=== PATIENT | female | born 1960 | race Caucasian/White ===

== ENCOUNTER → 2018-04-21 13:29 | Outpatient (CLI) | payer OTHER, SELFPAY ==
--- NOTE | 2018-04-21 | FLU_PTH ---
PATIENT: HOLA KATZ LOC: U#:[id number] AGE/SX: 64/F ROOM: RE04/21/[address]: Dr. Alex Burkett MD : 1960 BED: DIS: SPEC #: [id number] RECD: 04/21/18 15:09 STATUS: KOJO SERGIO #: [id number] ALBERTA: 04/21/18 00:[address]: Alex Burkett DEPT: CYTOLOGY RECD BY: Daryl Burk ENTERED: 04/21/18 15:10 SP TYPE: Fluid OTHR DR: Dr. Dwayne Quiñones MD Tissues: Thyroid gland, NOS Procedures: Special Stain Group II Surgery Specimen Level IV Cytospin Fluid HEADER OPERATION: FNA of right thyroid PRE-OP DIAGNOSIS: Right thyroid nodule TISSUE SUBMITTED: Right thyroid nodule DIAGNOSIS CYTOLOGY Fine needle aspiration, right thyroid nodule (smears): Atypical follicular cells suspicious for papillary carcinoma. See comment. AM:marianna 04/25/18 COMMENT The specimen is evaluated at the time of FNA by Dr. Puckett. Immediate Evaluation: Pass #1 - Blood, rare benign follicular cells. Pass #2 - Atypical follicular cells noted. Pass #3 - Atypical follicular cells noted. The cell block contains rare watery colloid. Clinical correlation is necessary. Case has been reviewed in consultation with Dr. Perales who concurs with the above diagnosis. IDC:CE CYTOLOGY STUDY Slides are reviewed. CYTOLOGY GROSS Pass #1 - Received is 0.1 ml of red-ovalle material labeled with the patient's name, and designated right thyroid. Four imprints and two paps are made from the submitted fluid and the rest is added to CytoLyt for cell block preparation. Submitted for cytology study. Pass #2 - Received is 0.1 ml of red-ovalle material labeled with the patient's name, and designated right thyroid. Two imprints and one pap are made from the submitted fluid and the rest is added to CytoLyt for cell block preparation. Submitted for cytology study. Pass #3 - Received is 0.1 ml of red-ovalle material labeled with the patient's name, and designated right thyroid. Three imprints and three paps are made from the submitted fluid and the rest is added to CytoLyt for cell block preparation. Submitted for cytology study. / AM:marianna 04/21/18 TC:? CPT: 17691, 89248 x2, 90367
--- NOTE | 2018-04-21 13:54 | US_ITS ---
PROCEDURE: ULTRASOUND GUIDED RIGHT THYROID FNA/BIOPSY. DATE: April 21, 2018. INDICATION: Female, 58 years old. Right thyroid nodule. PHYSICIAN: Edvin Hairston M.D. MEDICATIONS: 2% lidocaine administered subcutaneously for local anesthesia. ACCESS SITE: Right - anterior approach. NEEDLE: 25-gauge FNA needle. SPECIMEN: Multiple FNA specimen collected and given to pathology. EBL: None. COMPLICATIONS: None immediate. PROCEDURE: The risks, benefits, and alternatives to the procedure were explained to the patient. The specific risk of hemorrhage requiring further treatment or intervention was detailed and accepted. Written informed consent was obtained. The patient was brought into the ultrasound room and placed in the supine position on the stretcher. An appropriate entry site was identified. The overlying skin was prepped and draped in the usual sterile fashion. 2% lidocaine was administered subcutaneously for local anesthesia. Under ultrasound guidance, a 25-gauge FNA needle was advanced into the lesion. Aspiration was performed and the needle was withdrawn. A total of 3 passes were performed with specimen collected and given to the pathologist who was present during the procedure. Hemostasis was achieved with manual compression. Repeat ultrasound images of the biopsy area was performed which demonstrated no gross bleeding or hematoma. An antibiotic ointment dressing was placed and the patient was given an icepack. The patient tolerated the procedure well without immediate complications. The patient was discharged in stable condition. US/FNA 1st Biopsy w/ US IMPRESSION: Successful ultrasound-guided 3 thyroid nodule FNA/biopsy, as described above. Electronically Signed: Edvin Hairston MD at 15:36 EST , Service support ,
[2018-04-21 15:26] LABS: Thyroid Stim Hormone (TSH) 0.23 uIU/mL (0.358-3.74)
[2018-04-26 12:47] LABS: Anti-Thyroglobulin AB < 1.0 IU/mL (0.0-0.9); Thyroglobulin, Serum Qt. 34.7 ng/mL (1.5-38.5); Thyroid Peroxidase AB 11 IU/mL (0-34)
== END ==
PROVIDERS: Family Provider Family Medicine; PCP Family Medicine; Referring Provider Otolaryngology; Visit Provider Otolaryngology
DX: E04.1 Nontoxic single thyroid nodule (principal)
CPT/HCPCS: 10005; 36415; 84432; 84443; 86376; 86800; 88108; 88305; 88313

== ENCOUNTER 2018-05-06 13:20 | Observation (INO) | payer OTHER, SELFPAY ==
[2018-05-06] VITALS (10 sets, daily range): BP systolic 92–114; BP diastolic 45–72; PULSE 56–83; RESP 16–18; TEMP 36.3–37.3; O2SAT 91–97; BMI 28.8; BMI 30.9
--- NOTE | 2018-05-06 | IMM_PTH ---
PATIENT: HOLA KATZ LOC: MS2 U#:[id number] AGE/SX: 58/F ROOM: MS213 RE05/06/[address]: Dr. Alex Burkett MD : 1960 BED: 1 DIS: 05/07/2018 SPEC #: [id number] RECD: 05/10/18 09:10 STATUS: KOJO REQ #: [id number] ALBERTA: 05/06/18 00:[address]: Alex Burkett DEPT: IMMUNOHISTOCHEMISTRY RECD BY: Kita Tucker ENTERED: 05/10/18 09:11 SP TYPE: IMMUNO OTHR DR: Dr. Dwayne Quiñones MD Tissues: A - Thyroid gland, NOS Procedures: HBME (initial) CD56 (add) CK19 (add) GAL-3 (add) HBME (add) PHYSICIAN & INSTITUTION [place] [id number] SPECIMEN INFORMATION: Tissue Source: A - Total thyroid Clinical Info: Thyroid nodule Specimen Number: [id number] A4, A6, A7, A9, A12 CPT code: 05619, 56849 x19 METHODOLOGY: Deparaffinized sections of prefer/formalin-fixed tissue or PAP/DQ stained slides are incubated with monoclonal/polyclonal antibodies/oligonucleotide probes. Localization is made via biotin free immunoperoxidase method. Appropriate controls are performed and reacted as expected. Results on target cell population are indicated in the following table: RESULTS: ANTIBODY / CLONE RESULT Block A4 HBME1 (HBME-1) negative CK19 (A53-B/A2.26) negative GAL3 (9C4) negative CD56 (123C3.D5) positive Block A6 HBME1 (HBME-1) positive CK19 (A53-B/A2.26) negative GAL3 (9C4) negative CD56 (123C3.D5) positive Block A7 HBME1 (HBME-1) negative CK19 (A53-B/A2.26) negative GAL3 (9C4) negative CD56 (123C3.D5) positive Block A9 HBME1 (HBME-1) negative CK19 (A53-B/A2.26) negative GAL3 (9C4) negative CD56 (123C3.D5) positive Block A12 HBME1 (HBME-1) negative CK19 (A53-B/A2.26) negative GAL3 (9C4) negative CD56 (123C3.D5) positive These tests were developed and their performance characteristics determined by [facility]. They may not have been cleared or approved by the U.S. Food and Drug Administration. The FDA has determined that such clearance or approval is not necessary. INTERPRETATION: A. Thyroid, total thyroidectomy: Colloid nodules with focal adenomatous change. AM:marianna 05/10/18 Case has been reviewed in consultation with Dr. Kessler who concurs with the above diagnosis. IDC:TERRY
--- NOTE | 2018-05-06 07:43 | EKG12_ITS ---
Test Reason : PRE OP Blood Pressure : / mmHG Vent. Rate : 067 BPM Atrial Rate : 067 BPM P-R Int : 182 ms QRS Dur : 080 ms QT Int : 428 ms P-R-T Axes : 062 052 071 degrees QTc Int : 452 ms Sinus rhythm with Premature supraventricular complexes Low voltage QRS Borderline ECG No previous ECGs available Confirmed by MARKOS KELLY, JAMIL ([id number]), society editor CRISTINA MONGE ([id number]) on 05/12/2018 1:13:58 PM Referred By: Alex Burkett Confirmed By:JAMIL BURROWS MD
[2018-05-06 08:09] LABS: Anion Gap 10 (5-15); BUN 22 mg/dL (7-18); BUN/Creat Ratio 29.5 RATIO (10-20); Calcium,Total 8.9 mg/dL (8.5-10.1); Chloride 111 mmol/L (98-107); Creatinine, Serum 0.75 mg/dL (0.55-1.02); EST Glomerular Filtration Rate 85 mL/min (>60); Est Glom Filt Rate - Afr Amer 103 mL/min (>60); Estimated Creatinine Clearance 64.67 ml/min; Glucose 102 mg/dL (74-106); Potassium 4.2 mmol/L (3.5-5.1); Sodium Level 145 mmol/L (136-145)
--- NOTE | 2018-05-06 09:35 | THYROID_PTH ---
PATIENT: HOLA KATZ LOC: MS2 U#:[id number] AGE/SX: 58/F ROOM: MS213 RE05/06/[address]: Dr. Alex Burkett MD : 1960 BED: 1 DIS: 05/07/2018 SPEC #: [id number] RECD: 05/06/18 12:11 STATUS: KOJO SERGIO #: [id number] ALBERTA: 05/06/18 09:[address]: Alex Burkett DEPT: SURGICAL PATHOLOGY RECD BY: Ryan Stiles ENTERED: 05/06/18 13:14 SP TYPE: THYROID OTHR DR: Dr. Dwayne Quiñones MD Tissues: A - Thyroid gland, NOS B - Lymph node, NOS Procedures: Frozen Section (charge) Surgery Specimen Level IV Surgery Specimen Level V HEADER OPERATION: Total thyroidectomy, frozen section PRE-OP DIAGNOSIS: Dominant nodule of thyroid TISSUE SUBMITTED: A - Total thyroid for FS at 1211, B - Central compartment lymph node FROZEN SECTION DIAGNOSIS A. Thyroid, total thyroidectomy: Consistent with colloid nodule. SJ:marianna 05/06/18 MICROSCOPIC DIAGNOSIS A. Thyroid, total thyroidectomy: Colloid nodules with degenerative and focal adenomatous change. One out of one lymph node with no pathologic change. See comment. B. Central compartment lymph node, biopsy: One out of one lymph node with no pathologic change. AM:marianna 05/10/18 COMMENT A. Immunohistochemistry ([id number]) supports the above diagnosis. Case has been reviewed in consultation with Dr. Kessler who concurs with the above diagnosis. IDC:TERRY MICROSCOPIC DESCRIPTION Slides are reviewed. GROSS DESCRIPTION A - Received fresh for frozen section diagnosis labeled with the patient's name is a specimen designated total thyroid. The specimen consists of a total thyroidectomy specimen weighing 20 gm. The right lobe measures 5 x 3.5 x 2.5 cm, left lobe measures 4 x 2.5 x 1.5 cm and isthmus measures 1.5 x 0.5 x 0.5 cm. No external parathyroid gland is identified. The specimen is inked as follows: anterior surface right lobe - blue, left lobe - green and isthmus - yellow, and posterior surface right lobe, left lobe and isthmus - black. Serial sections of right lobe reveal a round, ovalle nodule measuring 1.7 cm in diameter. The nodule is present in the lower portion of the lobe. Sections of the left lobe and isthmus do not reveal any well defined nodules. A section of nodule with surrounding tissue is submitted for frozen section diagnosis. The entire specimen is submitted in 15 cassettes as follows: 1 - frozen section of nodule with surrounding tissue, 2-8 - right lobe (2 containing most superior portion and 8 containing most inferior portion), 9-14 - left lobe (9 containing most superior portion and 14 containing most inferior portion), 15 - isthmus. / TERRY:marianna 05/06/18 B - Received in fixative is one container labeled with the patient's name and designated central compartment lymph node. The specimen consists of a piece of ovalle soft tissue containing a nodule consistent with lymph node measuring 0.5 x 0.5 x 0.2 cm. The entire specimen is submitted in one cassette. / SJ:marianna 05/06/18 TC:1 CPT: 20950, 28318, 31222
--- NOTE | 2018-05-06 13:13 | PCM.OPRPT ---
Problem List (1) Nontoxic single thyroid nodule Status: Chronic Report of Operation Date of Procedure: 05/06/18 Pre-Operative Diagnosis: Uninodular goiter with suspicious features for papillary carcinoma on FNA Post-Operative Diagnosis: Same Surgery/Procedure Performed:: Total thyroidectomy Description of Surgical Findings:: Herminia is a 58-year-old female who was found incidentally on a CT scan to have a large right sided thyroid nodule. Given the size needle biopsy was advised and this did show features suspicious for the possibility of papillary thyroid carcinoma and the above procedure was advised for definitive evaluation as well as curative intent. The risks, alternatives, potential benefits, and complications were discussed at length and any questions answered to the patient and/or caregiver's satisfaction. Witnessed informed consent was obtained in the office, and the patient and/or caregiver was agreeable to proceed. Procedure went as follows: The patient was identified in the preoperative holding and brought to the operating room, placed under general anesthesia and intubated. The neuro monitoring electrodes were then placed in the chest and confirmed to be operational in accordance with the weatherization installer's directions to allow for recurrent laryngeal nerve monitoring. The neck was then prepped and draped in usual sterile fashion and the planned skin incision was marked 2 finger breadths above the sternal notch with a marking pen. The incisional line was then injected with 1% lidocaine with 100,000 epinephrine for a total of 8 mL. After allowing for vasoconstriction, a 15 blade scalpel was used to make an incision 8 cm in length through the skin and subcutaneous tissues and platysma. A subplatysmal flap was then elevated superiorly and inferiorly to allow placement of the self-retaining thyroid retractor. The strap muscles were then divided in the midline and beginning on the left side the thyroid lobe dissected in a sub-capsular fashion. The inferior, middle, and superior thyroid vessels were individually clamped and ligated with a combination of 3-0 silk sutures and vascular clips. The parathyroid glands were identified along the inferior vascular pedicle and preserved the recurrent laryngeal nerve was also identified and followed to its nerve entry point and the thyroid gland dissected free of its attachments to the trachea at Broyle's ligament. Attention was then turned to the contralateral side where similar dissection was carried out and completed again with preservation of the laryngeal nerve and parathyroid glands. The thyroidal specimen was then sent for frozen section evaluation which did not confirm the biopsy findings. Given this no further exploration of the central compartment for lymphadenopathy was undertaken however a small central node was sent for additional specimen prior to return of the pathologic report. The wound bed was then irrigated saline solution and examined for sites of bleeding. No significant bleeding was encountered and #7 flat drains were then placed into each tracheoesophageal groove and brought out through a separate stab incision in the neck and secured with 3-0 silk sutures. The strap muscles were then re-approximated in the midline with a running 3-0 Vicryl suture followed by interrupted 3-0 Vicryl sutures to close the platysma and subcutaneous tissues. A 5-0 Monocryl was then used to close the skin followed by Steri-Strips completing the procedure. The patient returned to anesthesia, revived and extubated having tolerated the procedure well. Type of Anesthesia:: General Anesthesiologist: Enoc Mayer Special Medications: none Specimen's removed: total thyroid Drains: #7 flat NASIMA Estimated Blood Loss (mL): 25 mL Fluids Replaced: 1500 mL Grafts/Implants Used: none - Complications none - Admit VTE Documentation VTE Present on Admission: No VTE Mechan Device Prophylaxis: SCD's VTE Pharm Prophylaxis ordered?: No
[2018-05-06 14:30] LABS: Calcium,Total 8.6 mg/dL (8.5-10.1)
[2018-05-06] MEDS: Ibuprofen 400 MG Tablet PO ×2 (14:55→22:57)
[2018-05-06] MEDS: Acetaminophen 325 MG Tablet 650 MG PO (18:55)
[2018-05-06] MEDS: 0.9% NaCl Peripheral Flush Adult/Peds IV (19:28)
[2018-05-06] MEDS: Ondansetron 4 MG/2 ML Vial IV (19:28)
[2018-05-07] MEDS: Acetaminophen 325 MG Tablet 650 MG PO (03:51)
[2018-05-07 03:57] VITALS: BP 98/56; PULSE 61; RESP 20; TEMP 37; O2SAT 98
[2018-05-07] MEDS: Levothyroxine 100 MCG Tablet PO (06:08)
[2018-05-07 07:27] VITALS: BP 105/66; PULSE 61; RESP 18; TEMP 37.5; O2SAT 94
[2018-05-07 07:27] LABS: Calcium,Total 8.7 mg/dL (8.5-10.1)
--- NOTE | 2018-05-07 07:29 | DCINST_ITS ---
- Discharge Diagnoses Current Active Problems: Current Active and Chronic Problems Nontoxic single thyroid nodule (Chronic) You will use the following diet at home:: No restrictions Your food should be the consistency of: Regular Discharge Activity: Return to Normal Activity, May not drive while taking narcotic pain medications. Call your doctor if your incision/area has: Increased Pain/ Swelling, Foul Smelling Discharge, Swelling at the incision site Call your doctor if you observe: Fever of 101 or Higher, Uncontrolled pain, - - NUMBNESS OR TINGLING OF FINGERS OR LIPS Cleanse incision/area with: Soap & Water Allergies/Adverse Reactions: Allergies No Known Allergies Allergy (Verified 05/04/18 08:48) Medications to take at Discharge NK 05/04/18 Primary Care Physician: Dwayne Quiñones MD [Primary Care Provider] - Test Results: Test results from this visit will be discussed in further detail at your follow- up appointment, if applicable. Please Follow Up With: Alex Burkett MD When: 2 WEEKS
--- NOTE | 2018-05-07 07:29 | PCM.PN.SRG ---
Subjective: The patient reports that she has done well overnight with no significant pain in her neck incision site. She denies perioral numbness or tingling. Objective: The patient is ambulating within her room. Her neck incision is clean dry and intact with minimal serosanguineous drain output. The drains were removed at the bedside. She [place] sign is negative. Her morning calcium is pending. - Physical Exam General: Alert, Oriented x3, Cooperative, No apparent distress HEENT: Atraumatic, PERRLA, EOMI Oral: Moist Mucosa Neck: Supple, - - incision intact Lungs: Normal air movement, No rhonchi, No wheeze Psych/Mental Status: Alert and oriented to time, place, person, mood and affect Vital Signs Temp Pulse Resp BP Pulse Ox 99.5 F H 61 18 105/66 94 05/07/18 07:27 05/07/18 07:27 05/07/18 07:27 05/07/18 07:27 05/07/18 07:27 Oxygen Flow Rate (L/min) 1 Oxygen Delivery Method Room Air Weight: 76.66 kg Body Mass Index (BMI) 30.9 Intake and Output for Last 24 Hours 05/05/18 05/06/18 05/07/18 23:59 23:59 23:59 Intake Total 3276 / 3276 600 / 600 Output Total Balance 3276 / 3276 585 / 585 Laboratory Tests Past 24 Hrs 05/06/18 05/06/18 05/07/18 07:45 13:50 06:40 Sodium 145 Potassium 4.2 Chloride 111 H Carbon Dioxide 24.0 Anion Gap 10 BUN 22 H Creatinine 0.75 Estim Creat Clear Calc 64.67 Est GFR (MDRD) Af Amer 103 Est GFR (MDRD) Non-Af 85 BUN/Creatinine Ratio 29.5 H Glucose 102 Calcium 8.9 8.6 8.7 Medical Necessity - Tobacco Use Smoking Status: Former smoker Assessment/Plan The patient is doing well status post total thyroidectomy for suspicious right thyroid nodule. Final pathology is pending but needle biopsy had been suggested for the possibility of a papillary thyroid carcinoma. This was not confirmed on the frozen section evaluation however and I am hopeful that this remains a benign lesion. Given this finding I have started her on thyroid replacement hormone in anticipation of a benign diagnosis in this setting. There are no clinical signs of hypocalcemia and her morning labs are pending. Unless there should be significant suppression of her calcium level or development of symptoms I feel that she is appropriate for discharge to home at this time. We discussed signs of hypocalcemia and she is alert me should any of these occur.
[2018-05-07 08:25] VITALS: BP 105/66; PULSE 61; RESP 18; TEMP 37.5; O2SAT 94
== END 2018-05-07 08:25 | disposition home or self-care (01) ==
LOC: SDC 13:28
PROVIDERS: Admitting Provider Otolaryngology; Family Provider Family Medicine; PCP Family Medicine; Referring Provider Otolaryngology; Visit Provider Otolaryngology
PROC: (CPT 60240; principal; 2018-05-06 09:15)
DX: E04.1 Nontoxic single thyroid nodule (principal); Z87.891 Personal history of nicotine dependence
CPT/HCPCS: 00320; 60240; 36415; 80048; 82310; 88305; 88307; 88331; 88341; 88342; 93005; 96374; 97802; 99218; J7120; A4216; G0378; G0379; J2405

== ENCOUNTER 2021-10-28 20:24 | Emergency (ER) | payer OTHER, SELFPAY ==
[2021-10-28 20:25] VITALS: BP 114/81; PULSE 71; RESP 18; TEMP 36.5; O2SAT 94; BMI 31.1
--- NOTE | 2021-10-28 21:01 | RAD_ITS ---
INDICATION: FALL EXAMINATION/TECHNIQUE: X-RAY - LEFT XR Hand Min 3 Views 3 VIEWS COMPARISON: None. FINDINGS: SOFT TISSUES: No soft tissue swelling or gas. No radiopaque foreign body. BONES/JOINTS: No acute fracture or malalignment. Moderate degenerative changes first carpometacarpal joint and mild degenerative changes first metacarpal phalangeal joint. No sclerotic or destructive changes observed. RAD/Hand Min 3 Views IMPRESSION: Mild degenerative changes most notably involving the first carpometacarpal joint. Electronically Signed: Shoaib Harris DO at 21:29 EDT ,
--- NOTE | 2021-10-28 22:34 | EX.ED.UPPERE ---
HPI History of Present Illness Chief Complaint: Upper Extremity Injury Narrative Narrative: 61-year-old female presenting with left hand pain. She states he had mechanical fall forward on outstretched hand. She points to her thenar eminence. She has not any numbness or tingling. No lacerations or abrasions. She does have bruising over the thenar eminence. She is not having limitation of range of motion. Denies any other injury. PFSH PFSH Medical History Former smoker Home Medications acetaminophen 325 mg tablet (Tylenol) 650 mg PO Q4H PRN PRN Mild-Moderate Pain (1-08/05) 05/07/18 [Rx Last Taken Unknown] food supplemt, lactose-reduced 0.08 gram-1.5 kcal/mL oral liquid (Ensure Enlive) 120 ml PO 4X/DAY 05/07/18 [Rx Last Taken Unknown] ibuprofen 400 mg tablet 400 mg PO Q6H PRN PRN MOD-SEVERE PAIN 4-01/0505/07/18 [Rx Last Taken Unknown] Allergy/AdvReac Type Severity Reaction Status Date / Time No Known Allergies Allergy Verified 10/28/21 20:27 Surgical History History of thyroidectomy Social History Smoking Status: Former smoker EXAM Physical Exam Const Vital Signs: 10/28/21 20:25 Temperature 97.7 F L Temperature Source Temporal Pulse Rate 71 Respiratory Rate 18 Blood Pressure 114/81 H Blood Pressure Mean 92 Pulse Ox 94 Oxygen Delivery Method Room Air Positive well nourished General Appearance ED: NAD HEENT Reports moist mucous membranes Eyes PERRL and EOMs intact bilaterally Resp normal respiratory effort and clear to auscultation bilaterally Auscultation: Negative for rales or rhonchi Cardio regular rate and regular rhythm Extremity Extremity Narrative: Tenderness to palpation over the left thenar eminence. There is bruising here. Left hand has 5/5 handgrip. Prescriptive at all 5 fingers. Neurovascular intact. Left wrist nontender to palpation. Neuro oriented x3 and CN's II-XII intact bilaterally Sensorium / Orientation: alert Motor Exam: strength 5/5 throughout Psych mental status grossly normal Skin Trauma: Negative for abrasion MDM MDM MDM Narrative Medical decision making narrative: Patient presenting with left hand pain after chemical fall. She has bruising over the thenar eminence. Patient declines analgesia in ER. Left hand x-ray on my interpretation shows no acute fractures. Radiologist notes mild degenerative changes of the first carpometacarpal joint. Patient was given limitations for work as this is Worker's Comp. Patient to use ice, Tylenol, ibuprofen as adjuncts. Dur p.o. discussed. Follow-up with [facility]. Impression: 1. Mechanical fall 2. Left hand contusion 3. Left hand bruise Lab Data Attestation: I reviewed the patient's lab results. Radiography Diagnostic Testing: Clinical Impression(s) from Imaging Studies Hand X-Ray 10/28/21 21:01 IMPRESSION: Mild degenerative changes most notably involving the first carpometacarpal joint. Electronically Signed: Shoaib Harris DO at 21:29 EDT , Discharge Plan Triage Chief Complaint: Upper Extremity Injury ED Provider: Jacob Aguiar Dx/Rx/DC Orders Prescriptions: No Action acetaminophen [Tylenol] 325 MG tablet 650 mg PO Q4H PRN PRN (Reason: Mild-Moderate Pain (1-5/10)) 0RF ibuprofen 400 MG tablet 400 mg PO Q6H PRN PRN (Reason: MOD-SEVERE PAIN 4-10/10) 0RF food supplemt, lactose-reduced [Ensure Enlive] 120 ML Liquid 120 ml PO 4X/DAY 0RF Primary Care Provider: Dwayne Quiñones Referrals: Dwayne Quiñones MD [Primary Care Provider] -
[2021-10-29 00:25] VITALS: BP 126/75; PULSE 100; RESP 15; O2SAT 99
== END 2021-10-29 00:26 | disposition home or self-care (01) ==
LOC: ED 22:48
PROVIDERS: Emergency Provider Student in an Organized Health Care Education/Training Program; PCP Family Medicine; Visit Provider Student in an Organized Health Care Education/Training Program
DX: S60.222A Contusion of left hand, initial encounter (principal); W19.XXXA Unspecified fall, initial encounter; Z87.891 Personal history of nicotine dependence
CPT/HCPCS: 73130; 99282